=== PATIENT | female | born 1955 | race African-American/Black ===

== ENCOUNTER 2018-12-27 16:20 | Emergency (ER) | payer MEDICAID ==
[~2018-12-27] VITALS: Ht 157.5 cm; Wt 69.0 kg
[~2018-12-27 16:20] MED LIST: HYDR-4009 PO; HYDR12.529 PO; P20 PO; PROSOL; PULM50 NEB; S350 PO
[2018-12-27] MEDS ORDERED: HYDROCODONE/ACETAMINOPHEN 5/325MG TABLET PO ONE (18:45)
[2018-12-27] MEDS ORDERED: KETOROLAC 60MG/2ML VIAL IM ONE (18:45)
[2018-12-27 20:40] VITALS: BP 130/61
== END 2018-12-27 20:40 | disposition home or self-care (01) ==
LOC: ER 16:20
DX: M54.5 Low back pain (principal); I10 Essential (primary) hypertension; J44.9 Chronic obstructive pulmonary disease, unspecified; Z98.51 Tubal ligation status
CPT/HCPCS: 96372; 99283; J1885

== ENCOUNTER 2019-02-27 18:57 | Inpatient (IN) | payer MEDICAID ==
[~2019-02-27] VITALS: Ht 162.6 cm; Wt 72.6 kg
[~2019-02-27 18:57] MED LIST changes: +CARI-166 PO; -S350 PO
[2019-02-27] MEDS ORDERED: SODIUM CHLORIDE 0.9% 500 ML IV ONE (21:34)
[2019-02-27] MEDS ORDERED: METHYLPREDNISOLONE SOD SUCC 125 MG/2 ML VIAL IV STA (21:34)
[2019-02-27] MEDS ORDERED: LEVOFLOXACIN 750MG PREMIX 150 ML IV ONE (21:45)
[2019-02-27] MEDS ORDERED: IPRATROPIUM/ALBUTEROL 0.5-3(2.5)MG/3ML NEB HHN ONE (21:45)
[2019-02-27 22:12] LABS: BASOPHILS % 0.8 % (0.0-2.0); EOSINOPHILS % 0.6 % (0.0-5.0); HEMATOCRIT. 45.1 % (36.0-48.0); HEMOGLOBIN. 14.6 g/dL (12.0-16.0); MEAN CORPUSCULAR VOLUME 89.7 fL (81.0-99.0); MEAN PLATELET VOLUME 8.6 fl (7.4-10.4); MONOCYTES % 12.1 % (2.0-8.0); NEUTROPHILS % 71.5 % (40.0-76.0); PLATELET 335 x1000/uL (130-400); RED BLOOD CELL COUNT 5.03 mill/uL (4.2-5.4); RED CELL DISTRIBUTION WIDTH 14.8 % (11.6-14.6)
[2019-02-27 22:18] LABS: CHLORIDE 99 mEq/L (98-107)
[2019-02-27 22:24] LABS: ETHANOL BLOOD < 10 mg/dL
[2019-02-27 22:26] LABS: BG BASE EXCESS 9.3 mmol/L (-2.0-2.0); BG CARBOXYHEMOGLOBIN 1.1 % (0.5-1.5); BG DEOXYHEMOGLOBIN 6.2 % (0.0-5.0); BG FRACTION INSPIRED OXYGEN 21; BG HCO3 ACT 35.2 mmol/L (22.0-26.0); BG METHEMOGLOBIN 0.4 % (0.0-1.5); BG OXYGEN SATURATION 93.7 % (92.0-98.5); BG OXYHEMOGLOBIN 92.3 % (94.0-97.0); BG PCO2 51.5 mmHg (35.0-45.0); BG PH 7.452 (7.350-7.450); BG SAMPLE SITE RIGHT RADIAL; BG TOTAL HEMOGLOBIN 15.5 g/dL (12.0-18.0); BG VENT MODE ROOM AIR
[2019-02-28 02:01] LABS: *AMPHETAMINES SCREEN URINE NEGATIVE (NEGATIVE); *BARBITURATES SCREEN URINE NEGATIVE (NEGATIVE); *BENZODIAZEPINES SCREEN URINE NEGATIVE (NEGATIVE); *COCAINE SCREEN URINE NEGATIVE (NEGATIVE); CANNABINOID URINE SCREEN NEGATIVE (NEGATIVE); METHADONE URINE SCREEN NEGATIVE (NEGATIVE); OPIATES URINE SCREEN PRESUMTIVE POSITIVE (NEGATIVE); PHENCYCLIDINE URINE SCREEN NEGATIVE (NEGATIVE)
[2019-02-28 04:35] VITALS: BP 130/52
[2019-02-28] MEDS ORDERED: BENA40TA9 PO (05:29)
[2019-02-28] MEDS ORDERED: TOPUD PO (05:29)
[2019-02-28] MEDS ORDERED: HYDR12.54 PO (05:29)
[2019-02-28] MEDS ORDERED: CLONIDINE 0.1MG TABLET PO PRN (05:45)
[2019-02-28] MEDS ORDERED: ACETAMINOPHEN 325MG TABLET PO PRN (05:45)
[2019-02-28] MEDS ORDERED: CARISOPRODOL 350 MG TABLET PO PRN (05:45)
[2019-02-28 05:54] VITALS: BP 130/52
[2019-02-28 08:00] VITALS: BP 121/53
[2019-02-28] MEDS: HYDROCHLOROTHIAZIDE 12.5MG CAPSULE PO SCH (08:39)
[2019-02-28] MEDS: ENOXAPARIN 40MG/0.4ML SYR SUBCUT SCH (08:40)
[2019-02-28] MEDS ORDERED: MEDICATION NOT ON FORMULARY EA (Hydrochlorothiazide 12.5 MG) PO SCH (09:00)
[2019-02-28] MEDS ORDERED: DOCUSATE SODIUM 100MG CAPSULE PO PRN (11:45)
[2019-02-28] MEDS ORDERED: HYDROCODONE/ACETAMINOPHEN 5/325MG TABLET PO PRN (11:45)
[2019-02-28] MEDS ORDERED: DIPHENHYDRAMINE 50MG/ML VIAL IV PRN (11:45)
[2019-02-28] MEDS ORDERED: MAGNESIUM/ALUMINUM HYDROXIDE/SIMETHICONE 30ML UDC PO PRN (11:45)
[2019-02-28 12:00] VITALS: BP 109/56
[2019-02-28] MEDS ORDERED: NICOTINE 21MG PATCH TD SCH (12:00)
[2019-02-28 12:07] LABS: BASOPHILS % 0.2 % (0.0-2.0); HEMATOCRIT. 42.8 % (36.0-48.0); HEMOGLOBIN. 13.9 g/dL (12.0-16.0); LYMPHOCYTES % 9.1 % (20.0-50.0); MEAN CORPUSCULAR HEMOGLOBIN 28.8 pg (28.0-32.0); MEAN CORPUSCULAR VOLUME 88.8 fL (81.0-99.0); MEAN PLATELET VOLUME 8.7 fl (7.4-10.4); NEUTROPHILS % 80.7 % (40.0-76.0); PLATELET 348 x1000/uL (130-400); RED BLOOD CELL COUNT 4.82 mill/uL (4.2-5.4)
[2019-02-28 12:34] LABS: CHLORIDE 99 mEq/L (98-107)
[2019-02-28 12:40] LABS: PHOSPHORUS 3.8 mg/dL (2.5-4.9)
[2019-02-28] MEDS: IPRATROPIUM/ALBUTEROL 0.5-3(2.5)MG/3ML NEB HHN SCH ×2 (12:54→20:52)
[2019-02-28 16:00] VITALS: BP 111/56
[2019-02-28] MEDS: NICOTINE 14MG PATCH TD SCH (16:45)
[2019-02-28] MEDS ORDERED: IPRATROPIUM/ALBUTEROL 0.5-3(2.5)MG/3ML NEB HHN PRN (16:45)
[2019-02-28 20:00] VITALS: BP 139/77
[2019-02-28] MEDS ORDERED: POTASSIUM CHLORIDE 20MEQ TABLET SR PO NR (20:30)
[2019-02-28] MEDS: METHYLPREDNISOLONE SOD SUCC 40 MG/ML VIAL IV SCH (21:15)
[2019-02-28] MEDS: GUAIFENESIN 600MG ER TABLET PO SCH (21:16)
[2019-02-28] MEDS ORDERED: TEMAZEPAM 15MG CAPSULE PO PRN (21:45)
[2019-02-28] MEDS: TEMAZEPAM 15MG CAPSULE PO PRN (22:37)
[2019-03-01 00:15] VITALS: BP 125/71
[2019-03-01] MEDS: IPRATROPIUM/ALBUTEROL 0.5-3(2.5)MG/3ML NEB HHN SCH ×4 (03:34→22:00)
[2019-03-01 04:00] VITALS: BP 133/69
[2019-03-01] MEDS: METHYLPREDNISOLONE SOD SUCC 40 MG/ML VIAL IV SCH (06:03)
[2019-03-01 06:58] LABS: BASOPHILS % 0.2 % (0.0-2.0); HEMATOCRIT. 42.9 % (36.0-48.0); HEMOGLOBIN. 13.9 g/dL (12.0-16.0); MEAN CORPUSCULAR HEMOGLOBIN 28.5 pg (28.0-32.0); MEAN CORPUSCULAR VOLUME 88.1 fL (81.0-99.0); MEAN PLATELET VOLUME 8.8 fl (7.4-10.4); NEUTROPHILS % 84.8 % (40.0-76.0); PLATELET 347 x1000/uL (130-400); RED BLOOD CELL COUNT 4.88 mill/uL (4.2-5.4)
[2019-03-01 07:03] LABS: BG BASE EXCESS 5.9 mmol/L (-2.0-2.0); BG DEOXYHEMOGLOBIN 6.1 % (0.0-5.0); BG FRACTION INSPIRED OXYGEN 28; BG HCO3 ACT 31.4 mmol/L (22.0-26.0); BG METHEMOGLOBIN 0.2 % (0.0-1.5); BG OXYGEN SATURATION 93.8 % (92.0-98.5); BG OXYHEMOGLOBIN 92.7 % (94.0-97.0); BG PCO2 48.9 mmHg (35.0-45.0); BG PH 7.426 (7.350-7.450); BG PO2 69.9 mmHg (75.0-100.0); BG SAMPLE SITE RIGHT BRACHIAL; BG TOTAL HEMOGLOBIN 14.6 g/dL (12.0-18.0); BG VENT MODE NASAL CANNULA
[2019-03-01 07:58] LABS: CHLORIDE 102 mEq/L (98-107)
[2019-03-01 08:00] VITALS: BP 118/68
[2019-03-01 08:05] LABS: PHOSPHORUS 4.6 mg/dL (2.5-4.9)
[2019-03-01] MEDS: GUAIFENESIN 600MG ER TABLET PO SCH ×2 (08:54→20:28)
[2019-03-01] MEDS: HYDROCHLOROTHIAZIDE 12.5MG CAPSULE PO SCH (08:54)
[2019-03-01] MEDS: ENOXAPARIN 40MG/0.4ML SYR SUBCUT SCH (08:55)
[2019-03-01] MEDS: NICOTINE 14MG PATCH TD SCH (09:08)
[2019-03-01] MEDS ORDERED: LIDOCAINE HCL/PF 1% 2ML VIAL ONE (09:17)
[2019-03-01 12:00] VITALS: BP 126/63
[2019-03-01 15:20] LABS: BG BASE EXCESS 6.7 mmol/L (-2.0-2.0); BG CARBOXYHEMOGLOBIN 0.9 % (0.5-1.5); BG DEOXYHEMOGLOBIN 13.1 % (0.0-5.0); BG FRACTION INSPIRED OXYGEN 21; BG HCO3 ACT 31.4 mmol/L (22.0-26.0); BG METHEMOGLOBIN 0.1 % (0.0-1.5); BG OXYGEN SATURATION 86.8 % (92.0-98.5); BG OXYHEMOGLOBIN 85.9 % (94.0-97.0); BG PCO2 44.7 mmHg (35.0-45.0); BG PH 7.464 (7.350-7.450); BG PO2 51.7 mmHg (75.0-100.0); BG SAMPLE SITE RIGHT BRACHIAL; BG TOTAL HEMOGLOBIN 15.1 g/dL (12.0-18.0); BG VENT MODE ROOM AIR
[2019-03-01] MEDS ORDERED: BUDESONIDE 0.5MG/2ML NEB HHN SCH (15:30)
[2019-03-01 16:00] VITALS: BP 99/59
[2019-03-01] MEDS: GUAIFENESIN/CODEINE 100-10MG/5ML UDC PO PRN ×2 (17:21→23:23)
[2019-03-01 20:39] VITALS: BP 123/69
[2019-03-01 22:34] LABS: CLARITY URINE CLEAR (CLEAR); COLOR URINE YELLOW (YELLOW); KETONES URINE NEGATIVE (NEGATIVE); LEUKOCYTE ESTERASE URINE NEGATIVE (NEGATIVE); NITRITE URINE NEGATIVE (NEGATIVE); OCCULT BLOOD URINE NEGATIVE (NEGATIVE); PH URINE 5.5 (4.5-8.0); PROTEIN URINE NEGATIVE (NEGATIVE); SPECIFIC GRAVITY URINE 1.013 (1.005-1.030); UROBILINOGEN URINE 0.2 E.U./dL (0.2-1.0)
[2019-03-01] MEDS: TEMAZEPAM 15MG CAPSULE PO PRN (23:16)
[2019-03-02 00:44] VITALS: BP 123/54
[2019-03-02] MEDS: IPRATROPIUM/ALBUTEROL 0.5-3(2.5)MG/3ML NEB HHN SCH ×3 (01:22→14:46)
[2019-03-02 04:00] VITALS: BP 96/50
[2019-03-02] MEDS: GUAIFENESIN/CODEINE 100-10MG/5ML UDC PO PRN ×2 (07:02→15:15)
[2019-03-02 08:37] VITALS: BP 102/55
[2019-03-02] MEDS ORDERED: METHYLPREDNISOLONE SOD SUCC 40 MG/ML VIAL IV SCH (09:00)
[2019-03-02 09:34] LABS: BASOPHILS % 0.8 % (0.0-2.0); EOSINOPHILS % 0.8 % (0.0-5.0); HEMATOCRIT. 45.2 % (36.0-48.0); HEMOGLOBIN. 14.8 g/dL (12.0-16.0); LYMPHOCYTES % 17.2 % (20.0-50.0); MEAN CORPUSCULAR HEMOGLOBIN 28.9 pg (28.0-32.0); MEAN PLATELET VOLUME 8.6 fl (7.4-10.4); NEUTROPHILS % 71.2 % (40.0-76.0); PLATELET 302 x1000/uL (130-400); RED BLOOD CELL COUNT 5.13 mill/uL (4.2-5.4); RED CELL DISTRIBUTION WIDTH 14.9 % (11.6-14.6)
[2019-03-02 09:57] LABS: CHLORIDE 101 mEq/L (98-107)
[2019-03-02] MEDS: HYDROCHLOROTHIAZIDE 12.5MG CAPSULE PO SCH (10:10)
[2019-03-02] MEDS: GUAIFENESIN 600MG ER TABLET PO SCH (10:11)
[2019-03-02] MEDS: NICOTINE 14MG PATCH TD SCH (10:11)
[2019-03-02] MEDS: ENOXAPARIN 40MG/0.4ML SYR SUBCUT SCH (10:11)
[2019-03-02 11:56] VITALS: BP 102/50
[2019-03-02] MEDS ORDERED: GUAI600T44 PO (12:13)
[2019-03-02] MEDS ORDERED: NICO-681 TD (12:13)
[2019-03-02] MEDS ORDERED: GUAI5LIQ8 PO (12:13)
[2019-03-02] MEDS ORDERED: PULM50 HHN (12:13)
[2019-03-02 15:24] VITALS: BP 114/63
== END 2019-03-02 18:38 | disposition home or self-care (01) | DRG 140 ==
LOC: ER 18:57 → 6WST 02-28 00:49 → EDBEDREQDT 02-28 01:04 → EDBEDREQTM 02-28 01:04 → EDBEDREQ 02-28 01:04 → ENRESERV 02-28 03:05 → UNDODISIN 03-01 19:02
PROVIDERS: ADMIT Family Medicine Adult Medicine; ATTEND Family Medicine Adult Medicine
DX: J44.1 Chronic obstructive pulmonary disease with (acute) exacerbation (principal); J96.01 Acute respiratory failure with hypoxia; J96.02 Acute respiratory failure with hypercapnia; E87.6 Hypokalemia; I10 Essential (primary) hypertension; F17.210 Nicotine dependence, cigarettes, uncomplicated; J06.9 Acute upper respiratory infection, unspecified; T50.905A Adverse effect of unspecified drugs, medicaments and biological substances, initial encounter; Z79.899 Other long term (current) drug therapy; Z71.6 Tobacco abuse counseling; Y92.89 Other specified places as the place of occurrence of the external cause
CPT/HCPCS: 36415; 36600; 71045; 80048; 80305; 80320; 81003; 82375; 82805; 83605; 83735; 83880; 84100; 84484; 87804; 93005; 93970; 94618; 94640; 96365; 96375; 99285; J1650; J1956; J2920; J2930; J3490; J7040; J7620; J7626; G0480

== ENCOUNTER 2019-05-16 02:55 | Emergency (ER) | payer MEDICAID ==
[~2019-05-16] VITALS: Ht 162.6 cm; Wt 73.0 kg
[~2019-05-16 02:55] MED LIST changes: +BENA40TA9 PO; -CARI-166 PO; +CARI350T28 PO; +GUAI5LIQ8 PO; +GUAI600T44 PO; -HYDR-4009 PO; -HYDR12.529 PO; +HYDR12.54 PO; +NICO-681 TD; -P20 PO; +PULM50 HHN; -PULM50 NEB; +TOPUD PO
[2019-05-16 03:09] VITALS: BP 98/56
[2019-05-16] MEDS ORDERED: HYDROCODONE/ACETAMINOPHEN 5/325MG TABLET PO STA (03:51)
[2019-05-16] MEDS ORDERED: PREDNISONE 20MG TABLET PO STA (03:51)
[2019-05-16] MEDS ORDERED: IPRATROPIUM BROMIDE (0.02%) 0.5MG/2.5ML NEB HHN STA (03:51)
[2019-05-16] MEDS ORDERED: ALBUTEROL (0.083%) 2.5MG/3ML NEB HHN STA (03:51)
[2019-05-16 04:22] LABS: BASOPHILS % 1.1 % (0.0-2.0); EOSINOPHILS % 2.5 % (0.0-5.0); HEMATOCRIT. 42.4 % (36.0-48.0); HEMOGLOBIN. 13.9 g/dL (12.0-16.0); LYMPHOCYTES % 20.1 % (20.0-50.0); MEAN CORPUSCULAR HEMOGLOBIN 29.2 pg (28.0-32.0); MEAN CORPUSCULAR VOLUME 89.3 fL (81.0-99.0); MEAN PLATELET VOLUME 8.7 fl (7.4-10.4); MONOCYTES % 8.2 % (2.0-8.0); NEUTROPHILS % 68.1 % (40.0-76.0); PLATELET 187 x1000/uL (130-400); RED BLOOD CELL COUNT 4.75 mill/uL (4.2-5.4); RED CELL DISTRIBUTION WIDTH 17.7 % (11.6-14.6)
[2019-05-16 04:26] LABS: CHLORIDE 109 mEq/L (98-107)
[2019-05-16 05:06] LABS: CLARITY URINE CLEAR (CLEAR); COLOR URINE YELLOW (YELLOW); KETONES URINE NEGATIVE (NEGATIVE); LEUKOCYTE ESTERASE URINE NEGATIVE (NEGATIVE); NITRITE URINE NEGATIVE (NEGATIVE); OCCULT BLOOD URINE NEGATIVE (NEGATIVE); PROTEIN URINE NEGATIVE (NEGATIVE); SPECIFIC GRAVITY URINE 1.021 (1.005-1.030); UROBILINOGEN URINE 0.2 E.U./dL (0.2-1.0)
== END 2019-05-16 06:35 | disposition home or self-care (01) ==
LOC: ER 02:55
DX: J44.1 Chronic obstructive pulmonary disease with (acute) exacerbation (principal); G89.29 Other chronic pain; M54.5 Low back pain; I10 Essential (primary) hypertension; F41.9 Anxiety disorder, unspecified; F17.210 Nicotine dependence, cigarettes, uncomplicated; Z90.49 Acquired absence of other specified parts of digestive tract; Z98.890 Other specified postprocedural states; Z98.51 Tubal ligation status
CPT/HCPCS: 36415; 71045; 80053; 81003; 83880; 84484; 85025; 93005; 94640; 99284; J7512; J7611; Z7610

== ENCOUNTER 2019-06-03 09:30 | Emergency (ER) | payer MEDICAID ==
[~2019-06-03] VITALS: Ht 162.6 cm; Wt 73.0 kg
[2019-06-03] MEDS ORDERED: IPRATROPIUM BROMIDE (0.02%) 0.5MG/2.5ML NEB HHN STA (10:29)
[2019-06-03] MEDS ORDERED: ALBUTEROL (0.083%) 2.5MG/3ML NEB HHN STA (10:29)
[2019-06-03] MEDS ORDERED: PREDNISONE 20MG TABLET PO STA (10:29)
[2019-06-03] MEDS ORDERED: LORAZEPAM 0.5MG TABLET PO ONE (10:45)
[2019-06-03 11:31] VITALS: BP 93/52
== END 2019-06-03 11:31 | disposition home or self-care (01) ==
LOC: ER 10:02
DX: J44.1 Chronic obstructive pulmonary disease with (acute) exacerbation (principal); F41.1 Generalized anxiety disorder; I10 Essential (primary) hypertension; F17.200 Nicotine dependence, unspecified, uncomplicated; Z90.49 Acquired absence of other specified parts of digestive tract; Z98.51 Tubal ligation status
CPT/HCPCS: 71045; 94640; 99283; J7611; Z7610

== ENCOUNTER 2019-06-23 18:15 | Emergency (ER) | payer MEDICAID ==
[~2019-06-23] VITALS: Ht 162.6 cm; Wt 72.0 kg
[2019-06-23 23:04] LABS: BASOPHILS % 0.3 % (0.0-2.0); EOSINOPHILS % 0.1 % (0.0-5.0); HEMOGLOBIN. 15.8 g/dL (12.0-16.0); LYMPHOCYTES % 11.5 % (20.0-50.0); MEAN CORPUSCULAR VOLUME 91.4 fL (81.0-99.0); MEAN PLATELET VOLUME 9.2 fl (7.4-10.4); MONOCYTES % 11.7 % (2.0-8.0); NEUTROPHILS % 76.4 % (40.0-76.0); PLATELET 277 x1000/uL (130-400); RED BLOOD CELL COUNT 5.25 mill/uL (4.2-5.4); RED CELL DISTRIBUTION WIDTH 15.3 % (11.6-14.6)
[2019-06-23 23:10] LABS: CHLORIDE 80 mEq/L (98-107)
[2019-06-23] MEDS ORDERED: ALBUTEROL (0.083%) 2.5MG/3ML NEB HHN NR (23:59)
[2019-06-23] MEDS ORDERED: IPRATROPIUM BROMIDE (0.02%) 0.5MG/2.5ML NEB HHN NR (23:59)
[2019-06-24 03:16] VITALS: BP 115/61
== END 2019-06-24 03:55 | disposition short-term general hospital (02) ==
LOC: ER 18:15 → CANBEDREQ 06-24 05:09
DX: I50.9 Heart failure, unspecified (principal); J06.9 Acute upper respiratory infection, unspecified; R79.89 Other specified abnormal findings of blood chemistry; E87.1 Hypo-osmolality and hyponatremia; J44.9 Chronic obstructive pulmonary disease, unspecified; I10 Essential (primary) hypertension; Z98.890 Other specified postprocedural states; Z90.49 Acquired absence of other specified parts of digestive tract
CPT/HCPCS: 36415; 71045; 80053; 83880; 84484; 85025; 87804; 93005; 94640; 99285; J7610; Z7610

== ENCOUNTER 2019-11-11 21:25 | Emergency (ER) | payer MEDICARE, OTHER ==
[~2019-11-11] VITALS: Ht 162.6 cm; Wt 67.0 kg
[2019-11-11 23:00] VITALS: BP 120/80
== END 2019-11-12 00:39 | disposition home or self-care (01) ==
LOC: ER 21:25
DX: J44.9 Chronic obstructive pulmonary disease, unspecified (principal); Z20.828 Contact with and (suspected) exposure to other viral communicable diseases; I10 Essential (primary) hypertension; F17.290 Nicotine dependence, other tobacco product, uncomplicated; Z90.49 Acquired absence of other specified parts of digestive tract; Z98.51 Tubal ligation status
CPT/HCPCS: 99283; 99406; C9803; U0003; 99281